=== PATIENT | female | born 1985 | race Caucasian/White ===

== ENCOUNTER 2017-10-31 01:21 | Emergency (ER) | payer SELFPAY ==
[~2017-10-31 01:21] MED LIST: CEPH500C3 PO; SULF-154 PO
[2017-10-31 01:23] VITALS: BP 119/67; PULSE 91; RESP 18; TEMP 99.1; O2SAT 98
[2017-10-31] MEDS ORDERED: BACT800T5 PO (01:53)
--- NOTE | 2017-10-31 01:53 | PD ---
HPI Chief Complaint: Skin Problem Time Seen by Provider: 01:46 Travel History International Travel<30 days: No Contact w/Intl Traveler<30days: No Traveled to known affect area: No History of Present Illness HPI Patient claims that she was bitten by insect or spider or something about a week ago over her left breast. Over the week the patient states that he came to ahead and last night it started draining. Today patient states that it is much smaller than what it was before and looks better but she decided to come in because she thought that she needed antibiotics. Per patient she has not been on any antibiotics over the past week, and did not seek any care. 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 Patient has cellulitis over right upper medial quadrant with localized draining. Cellulitis is extending inferiorly to the left lower medial quadrant and the left lower outer water and just below the nipple. No streaking, no purulent discharge from her areola. HEAD: Atraumatic. Normocephalic. EYES: Pupils equal and round. No scleral icterus. No injection or drainage. ENT: No nasal bleeding or discharge. Mucous membranes pink and moist. NECK: Trachea midline. No JVD. CARDIOVASCULAR: Regular rate and rhythm. RESPIRATORY: No accessory muscle use. Clear to auscultation. Breath sounds equal bilaterally. GASTROINTESTINAL: Abdomen soft, non-tender, nondistended. Hepatic and splenic margins not palpable. MUSCULOSKELETAL: Extremities without clubbing, cyanosis, or edema. No obvious deformities. NEUROLOGICAL: Awake and alert. No obvious cranial nerve deficits. Motor grossly within normal limits. Five out of 5 muscle strength in the arms and legs. Normal speech. PSYCHIATRIC: Appropriate mood and affect; insight and judgment normal. Data Data Last Documented VS Vital Signs Date Time Temp Pulse Resp B/P (MAP) Pulse Ox O2 Delivery O2 Flow Rate FiO2 10/31/17 01:23 99.1 91 18 119/67 (84) 98 Room Air Orders Orders Clindamycin Inj (Cleocin Inj) (10/31/17 02:00) MDM Medical Decision Making Medical Screen Exam Complete: Yes Emergency Medical Condition: Yes Medical Record Reviewed: Yes Differential Diagnosis Abscess versus cellulitis versus Narrative Course Based on clinical evaluation the patient is noted to have a draining abscess with surrounding cellulitis. Currently since the abscess is draining on its own no further need for incision and drainage of this very point, patient will be started on clindamycin IM. And sent home on Bactrim DS Diagnosis Primary Impression: Left breast resolving abscess Additional Impression: Left breast cellulitis Patient Instructions: Breast Abscess Drainage (DC), General Instructions Scripts Sulfamethoxazole-Trimethoprim (Bactrim DS) 800-160 Mg Tab 1 TAB PO BID for Infection, #20 TAB 0 Refills Prov: Willy Arana MD 10/31/17 Disposition: DISCHARGE HOME Condition: Stable Willy Arana MD Oct 31, 2017 01:53
[2017-10-31] MEDS ORDERED: CLINDAMYCIN PHOS 600 MG/4 ML VIAL IM ONE (02:00)
== END 2017-10-31 02:12 | disposition home or self-care (01) ==
LOC: NEPE 01:21
DX: N61.1 Abscess of the breast and nipple (principal); Z72.0 Tobacco use
CPT/HCPCS: 96372